=== PATIENT | male | born 1995 | race Two or more races ===

== ENCOUNTER 2021-09-11 15:45 | Emergency (ER) | payer SELFPAY ==
[~2021-09-11] VITALS: Ht 172.7 cm; Wt 66.2 kg
--- NOTE | 2021-09-11 15:55 | NUR ---
[id number] FR[facility] HOME, ROOMATE CALLED, PT INTOXICATED UNABLE TO GET UP. PT AWAKE POLYSOM TECH A/OX1. DENIES ANY MEDICAL COMPLAINT POLYSOM TECH. TOLERATING R/A WELL AT 95%. CONNECTED PT TO POX AND MONITOR. SAFETY MEASURES IN PLACE.
[2021-09-11 16:51] LABS: BASOPHILS % (AUTO) 0.3 % (0.0-2.0); EOSINOPHILS % (AUTO) 0.1 % (0.0-6.0); HEMATOCRIT 45 % (39-51); HEMOGLOBIN 15.2 g/dL (13.5-17.5); LYMPHOCYTES # (AUTO) 1.1 K/uL (0.8-4.8); LYMPHOCYTES % (AUTO) 14.4 % (20.0-44.0); MEAN CORPUSCULAR HGB CONC 34 g/dl (31.0-36.0); MEAN CORPUSCULAR VOLUME 90 fL (80-96); MONOCYTES # (AUTO) 0.2 K/uL (0.1-1.30); MONOCYTES % (AUTO) 2.8 % (2.0-12.0); NEUTROPHILS # (AUTO) 6.2 K/uL (1.8-8.9); NEUTROPHILS % (AUTO) 82.4 % (43.0-81.0); PLATELET COUNT (AUTO) 110 K/uL (150-450); RED BLOOD CELL COUNT(AUTO) 4.97 MIL/uL (4.5-6.0); WHITE BLOOD COUNT (AUTO) 7.5 K/uL (4.3-11.0)
[2021-09-11 16:57] LABS: CARBON DIOXIDE 28 mmol/L (21-32); CHLORIDE 100 mmol/L (98-107); CREATININE 0.9 mg/dL (0.6-1.3); GLUCOSE 93 mg/dL (74-106); POTASSIUM 3.8 mmol/L (3.5-5.1); SODIUM SERUM 145 mmol/L (136-145); UREA NITROGEN, BLOOD 9 mg/dL (7-18)
[2021-09-11 17:04] LABS: ACETAMINOPHEN < 10 ug/ml (10-30); ALANINE AMINOTRANSFERASE 117 U/L (12-78); ALBUMIN 3.9 g/dL (3.4-5.0); ALCOHOL, BLOOD 560 mg/dL (0-0); ALKALINE PHOSPHATASE 86 U/L (46-116); ASPARTATE AMINOTRANSFERASE 149 U/L (15-37); BILIRUBIN,DIRECT 0.2 mg/dL (0.0-0.2); BILIRUBIN,TOTAL 0.5 mg/dL (0.2-1.0); TOTAL PROTEIN, SERUM 7.5 g/dL (6.4-8.2)
--- NOTE | 2021-09-11 17:21 | NUR ---
URINE COLLECTED AND SENT TO LAB
[2021-09-11 17:52] LABS: BILIRUBIN,URINE NEGATIVE (NEGATIVE); COLOR,URINE YELLOW (YELLOW); LEUKOCYTE ESTERASE ,URINE NEGATIVE (NEGATIVE); NITRITE, URINE NEGATIVE (NEGATIVE); PH,URINE 6.5 (5.0-8.0); PROTEIN,URINE TRACE mg/dl (NEGATIVE); UGLUCOSE NEGATIVE (NEGATIVE); UROBILINOGEN,URINE 0.2 EU/dL (0.2)
[2021-09-11 18:04] LABS: BACTERIA,URINE None seen /HPF (None Seen); SQUAMOUS EPITHELIAL CELL,UR Few /HPF (None Seen); WBC,URINE 0-2 /HPF (0-3)
[2021-09-11] MEDS ORDERED: ONDANSETRON 4 MG TAB.RAPDIS ONE (20:56)
--- NOTE | 2021-09-11 22:47 | NUR ---
PT AAO X2 TO SELF AND TIME. ORIENTED PT TO SETTING. ADLS DONE. PT STATED HE DRANK ABOUT 1 BOTTLE OF VODKA YESTERDAY.
--- NOTE | 2021-09-12 01:30 | NUR ---
PATIENT AMBULATES TO RESTROOM, AND RETURNED TO BED. VSS. PATIENT PROVIDED PO FLUIDS, TOLERATING WELL.
--- NOTE | 2021-09-12 05:09 | NUR ---
CALLED PT BROTHER FOR RANCH HAND SUPERVISOR, NO ANSWER
--- NOTE | 2021-09-12 05:33 | NUR ---
SECOND CALL, PT BROTHER FOR SERVICING MANAGER, NO ANSWER
--- NOTE | 2021-09-12 06:25 | NUR ---
CALLED BROTHER FOR WEARING APPAREL ASSEMBLER, NO ANSWER
--- NOTE | 2021-09-12 07:02 | NUR ---
PT BROTHER ETA 30 MIN TO PICK PT UP
--- NOTE | 2021-09-12 07:21 | NUR ---
Patient discharged to home in stable condition. Written and verbal after care instructions given. Patient verbalizes understanding of instruction. Steady gait.
[2021-09-12 07:22] VITALS: BP 129/69
== END 2021-09-12 07:22 | disposition home or self-care (01) ==
LOC: ER 15:48
DX: F10.129 Alcohol abuse with intoxication, unspecified (principal); Y90.8 Blood alcohol level of 240 mg/100 ml or more
CPT/HCPCS: 36415; 80048; 80076; 80143; 80307; 80320; 81001; 85025; 99285; Q0162; G0480